=== PATIENT | female | born 1985 | race African-American/Black ===

== ENCOUNTER 2021-10-25 16:44 | Emergency (ER) | payer SELFPAY ==
[~2021-10-25] VITALS: Ht 160 cm; Wt 77.0 kg
[2021-10-25 17:40] VITALS: BP 129/76
[2021-10-25] MEDS ORDERED: IBUPROFEN 400 MG TABLET. PO ONE (18:30)
--- NOTE | 2021-10-25 18:30 | ED.ADGEN ---
Past Medical History Past Surgical History: No Surgical History General Adult EDM: Chief Complaint: FOOT INJURY PAIN HPI: HPI: Patient is a 36 year old female coming in for bilateral foot pain. Patient states that her left foot pain started about 2 weeks ago, right foot pain started about 4 days ago. Patient has not taken anything for pain. Patient states she is active and on her feet a lot. Wears regular shoes at work, denies any excessive use of high heels. States she is barefoot when she is at home. Denies any known injuries. Has noticed swelling around the ball of her right foot. It is painful to touch. Review of Systems: Review of Systems: All other systems within normal limits except for as noted in the HPI Current Medications: Current Medications Medications (Trade) Dose Ordered Sig/Alejo Start Time Stop Time Status Last Admin Dose Admin Ibuprofen (Motrin) 800 mg 1X ONCE 10/25/21 18:30 10/25/21 18:38 DC 10/25/21 19:08 800 MG Allergies: Allergies: Allergies Coded Allergies Type Severity Reaction Last Updated Verified No Known Drug Allergies 10/25/21 No Physical Exam: PE: Constitutional: Well developed, well nourished, no acute distress, non-toxic appearance. [] HENT: Normocephalic, atraumatic, bilateral external ears normal, nose normal. [] Eyes: PERRLA, conjunctiva normal, no discharge. [] Neck: No rigidity, supple, no stridor. [] Cardiovascular: Regular rate and rhythm, brisk cap refill [] Lungs & Thorax: Non labored symmetric respirations, no tachypnea or respiratory distress [] Abdomen: Soft, nondistended. Skin: Warm, dry, no erythema, no rash. [] Back: Unremarkable Extremities: No deformities, range of motion grossly intact, no lower extremity edema. Feet, tenderness over plantar aspect, worse on the ball of foot. Mild swelling on left ball of foot. No joint effusions. Pain worse with dorsiflexion of toes and foot [] Neurologic: Alert and oriented X 3, no focal deficits noted. [] Psychologic: Affect normal, judgement normal, mood normal. [] Current Patient Data: Vital Signs: Vital Signs Date Time Temp Pulse Resp B/P (MAP) Pulse Ox O2 Delivery O2 Flow Rate FiO2 10/25/21 17:40 98.0 87 16 129/76 (93) 98 Room Air 98.0 EKG: EKG: [] Heart Score: C/O Chest Pain: No Risk Factors: Risk Factors: DM, Current or recent (<one month) smoker, HTN, HLP, family history of CAD, obesity. Risk Scores: Score 0 - 3: 2.5% MACE over next 6 weeks - Discharge Home Score 4 - 6: 20.3% MACE over next 6 weeks - Admit for Clinical Observation Score 7 - 10: 72.7% MACE over next 6 weeks - Early Invasive Strategies Radiology/Procedures: Radiology/Procedures: [facility] [address] [place] [address] IMAGING REPORT Signed PATIENT: NIMESH CEDEÑO ACCOUNT: [id number] : 1985 LOCATION: ER AGE: 36 SEX: F EXAM STATUS: REG ER ORD. PHYSICIAN: MOON RAMOS MD REASON: pain, swelling PROCEDURE: FOOT BILAT 2V EXAMINATION: XR FEET 2 VIEWS. HISTORY: 36 years Female Reason: pain, swelling / Spl. Instructions: / History: . COMPARISON: None. FINDINGS: No fracture, dislocation or radiopaque foreign body seen in 2 views of the right and 2 views of the left the foot. The joint spaces and articular surfaces appear unremarkable. IMPRESSION: Unremarkable exam. Electronically signed by: Karmen Baron MD (10/25/2021 8:50 PM) [id number] DICTATED and SIGNED BY: KARMEN BARON MD DATE: 10/25/[id number] 0 [] Course & Med Decision Making: Course & Med Decision Making Pertinent Labs and Imaging studies reviewed. (See chart for details) [] Dragon Disclaimer: Dragon Disclaimer: This electronic medical record was generated, in whole or in part, using a voice recognition dictation system. Departure Departure Impression: Primary Impression: Plantar fasciitis, bilateral Disposition: 01 HOME / SELF CARE / HOMELESS Condition: STABLE Referrals: NO PCP (PCP) Patient Instructions: Plantar Fasciitis Additional Instructions: [facility] [address] [place] [address] Scripts Ibuprofen (IBUPROFEN) 800 Mg Tablet 800 MG PO PRN Q8HRS PRN for INFLAMMATION for 10 Days, #30 TAB Prov: MOON RAMOS MD 10/25/21 MOON RAMOS MD Oct 25, 2021 18:30
[2021-10-25] MEDS ORDERED: IBUP-1060 PO (20:07)
--- NOTE | 2021-10-25 20:52 | RAD ---
EXAMINATION: XR FEET 2 VIEWS. HISTORY: 36 years Female Reason: pain, swelling / Spl. Instructions: / History: . COMPARISON: None. FINDINGS: No fracture, dislocation or radiopaque foreign body seen in 2 views of the right and 2 views of the l eft the foot. The joint spaces and articular surfaces appear unremarkable. IMPRESSION: Unremarkable exam. Electronically signed by: Bandar Baron MD (10/25/2021 8:50 PM) [id number]
== END 2021-10-25 21:15 | disposition home or self-care (01) ==
LOC: ER 16:44
DX: M72.2 Plantar fascial fibromatosis (principal)
CPT/HCPCS: 99283; 73620-50